=== PATIENT | female | born 1940 | race Caucasian/White ===

== ENCOUNTER 2017-04-13 20:15 | Emergency (ER) | payer MEDICARE, BC ==
--- NOTE | ~2017-04-13 | CR72 ---
[facility] A Service of [facility] RADIOLOGY TEXT RESULTS PATIENT: NUNU GANN LOCATION: SED : 38 UNIT #: [id number] AGE: [address]: Tl Vang MD SEX: F ORDER DR: [id number] [place] [id number] MR#: [id number] Acc #: [id number] NAME: NUNU GANN : 1940 SEX: F STUDY DATE/TIME: 04/13/2017 20:38 UNIT: SED ROOM: STUDY DESCRIPTION: CR Chest Single View Portable Attending Physician: Tl Vang M.D. Ordering Physician: Tl Vang M.D. Primary Care Physician: Deb Wagner M.D. MEDICAL IMAGING REPORT This report is preliminary unless electronic signature is present. EXAM Portable chest HISTORY Shortness of air for 4 days. Foot and leg swelling. FINDINGS Mild cardiac enlargement. Pulmonary vascularity is within normal limits. Under penetration of the left base with patient rotation to the left partly obscuring the left base as well. Patchy infiltrate or atelectasis is not excluded in the left base. Small right pleural effusion is stable. IMPRESSION 1. Stable cardiac enlargement and small right pleural effusion compared to 04/10/2015. 2. Possible left basilar infiltrate or atelectasis with limited evaluation of left base due to patient rotation to the left and under penetration. No definite infiltrates in the remainder of the lungs. Dictated by... Peterson Jo M.D. THIS IS AN ELECTRONICALLY VERIFIED REPORT Peterson Jo M.D. at 04/13/2017 10:48 PM DFL/kayode TD: 04/13/2017 21:56 JOB #: [id number] MEDICAL IMAGING REPORT [facility] A Service of [facility] RADIOLOGY TEXT RESULTS PATIENT: NUNU GANN LOCATION: SED : 38 UNIT #: [id number] AGE: [address]: Tl Vang MD SEX: F ORDER DR: Page 1 of 1
--- NOTE | ~2017-04-13 | EKG ---
PATIENT: NUNU GANN UNIT #: [id number] Ventricular Rate: 69 BPM Atrial Rate: 69 BPM P-R Interval: 186 ms QRS Duration: 132 ms Q-T Interval: 472 ms QTC Calculation(Bezet): 505 ms P Botkins: 52 degrees Calculated R Botkins: -50 degrees Calculated T Botkins: -9 degrees Diagnosis Line: Normal sinus rhythm Diagnosis Line: Possible Left atrial enlargement Diagnosis Line: Right bundle branch block Diagnosis Line: Left anterior fascicular block Diagnosis Line: Bifascicular block Diagnosis Line: Left ventricular hypertrophy with QRS widening Diagnosis Line: Abnormal ECG Diagnosis Line: No previous ECGs available Diagnosis Line: Confirmed by BLANCA GONZALEZ MD ([id number]) on Diagnosis Line: 04/17/2017 9:34:59 PM INTERPRETING MD: LISA MORRIS
[2017-04-13] MEDS ORDERED: BYSTOLIC10 MG (20:33)
[2017-04-13] MEDS ORDERED: ZOFRANODT (20:34)
[2017-04-13] MEDS ORDERED: NORVASC (20:34)
[2017-04-13] MEDS ORDERED: CLARITIN D (20:34)
[2017-04-13] MEDS ORDERED: ZOLOFT (20:34)
[2017-04-13] MEDS ORDERED: PRILOSEC (20:34)
[2017-04-13] MEDS ORDERED: HUMALOG100 UNIT/2 (20:34)
[2017-04-13] MEDS ORDERED: SINGULAIR (20:35)
[2017-04-13] MEDS ORDERED: TYLENOL #3 (20:35)
[2017-04-13 20:45] LABS: BASOPHIL# 0.1 X10e3 (0-0.3); BASOPHIL% 1.4 % (0-2.5); EOSINOPHIL# 0.4 X10e3 (0-0.7); EOSINOPHIL% 5.5 % (0.0-7.0); HEMATOCRIT 33.2 % (35.0-45.0); HEMOGLOBIN 10.8 gm/dL (12.0-16.0); LYMPHOCYTE# 1.5 X10e3 (1.0-3.5); LYMPHOCYTE% 19.8 % (17.0-45.0); MEAN CELL VOLUME 88.1 FL (83-96); MEAN CORPUSCULAR HEMOGLOBIN 28.6 PG (28-34); MEAN CORPUSCULAR HGB CONC 32.5 g/dL (30-36); MEAN PLATELET VOLUME 9.8 FL (6.5-11.5); MONOCYTE# 0.4 X10e3 (0-1.0); MONOCYTE% 5.3 % (3.0-12.0); NEUTROPHIL# 5.2 X10e3 (1.5-7.1); PLATELET COUNT 194 X10e3 (140-420); RED BLOOD COUNT 3.77 X10e (3.90-5.30); RED CELL DISTRIBUTION WIDTH 13.2 % (11.0-15.5); WHITE BLOOD COUNT 7.7 X10e3 (4.0-10.5)
[2017-04-13 20:47] LABS: DIFF IND NO; PROTHROMBIN TIME (PATIENT) 11.8 SECONDS (9.5-12.4)
[2017-04-13 20:56] LABS: ALBUMIN SERUM 3.7 g/dL (3.5-5.0); BILIRUBIN, DIRECT 0.1 mg/dL (0.0-0.2); BILIRUBIN,INDIRECT 0.3 mg/dL (0.0-0.9); BILIRUBIN,TOTAL 0.4 mg/dL (0.2-2.0); BUN/CREATININE RATIO 15.62; CALCIUM SERUM 8.5 mg/dL (8.4-10.2); CREATININE SERUM 1.6 mg/dL (0.6-1.4); GLOM FILT RATE Estimated 30.6 mL/min (>60); POTASSIUM 4.4 mmol/L (3.5-5.1)
[2017-04-13 20:58] LABS: POC - CKMB <1.0 ng/mL (0.0-7.9); POC - TROPONIN <0.05 ng/mL (<=0.05)
[2017-04-13 22:15] LABS: POC - CKMB 1.1 ng/mL (0.0-7.9); POC - TROPONIN <0.05 ng/mL (<=0.05)
== END 2017-04-13 22:34 | disposition home or self-care (01) ==
LOC: SED 20:15
PROVIDERS: Emergency Medicine
DX: I50.9 Heart failure, unspecified (principal); J44.9 Chronic obstructive pulmonary disease, unspecified; J32.9 Chronic sinusitis, unspecified; Z88.8 Allergy status to other drugs, medicaments and biological substances
CPT/HCPCS: 36415; 71010; 80048; 80076; 82553; 83880; 84484; 85025; 85610; 85730; 93005; 96374; 99284; J1940